=== PATIENT | male | born 1965 | race Caucasian/White ===

== ENCOUNTER 2021-05-20 10:38 | Emergency (ER) | payer BC ==
[~2021-05-20] VITALS: Ht 165.1 cm; Wt 72.6 kg
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
[2021-05-20] MEDS ORDERED: METFORMIN HCL500 M2 PO (10:46)
[2021-05-20] MEDS ORDERED: CARAFATE1 GM/10 ML PO ×2 (12:26→12:27)
[2021-05-20] MEDS ORDERED: ZOFRAN ODT4 MG PO ×2 (12:26→12:27)
[2021-05-20 12:41] VITALS: BP 134/73
--- NOTE | 2021-05-20 13:16 | EKG ---
[place] [address] ELECTROCARDIOGRAM REPORT Name: KORIN MCQUEEN Room: [facility]#: [id number] Admission: 05/20/21 Attend Phys: Discharge: 05/20/21 Date of : 67 Date of Service: 05/20/21 1144 Report #: [id number] THIS REPORT FOR: //name// [facility] ED Test Date: 2021-05-20 Test Time: 11:44:57 Pat Name: KORIN MCQUEEN Department: Room: Gender: Manager Store: : 1965 Requested By: Yenifer Koenig Order Number: [id number] MD: Giovanni Huerta Measurements Intervals [place] Rate: 102 P: 40 [place]: 140 QRS: 11 QRSD: 80 T: 43 QT: 345 QTc: 450 Interpretive Statements Sinus tachycardia Probable left atrial enlargement Borderline ST elevation, anterior leads No previous ECG available for comparison Electronically Signed On 05-20-2021 13:16:29 CDT by Giovanni Huerta [email or web address] <ELECTRONICALLY SIGNED> By: Giovanni Huerta MD, [facility] 05/20/21 1316 1144 1144 Giovanni Huerta MD, [facility] /EPI
== END 2021-05-20 12:42 | disposition home or self-care (01) ==
LOC: M.ERS 10:38
DX: S27.818A Other injury of esophagus (thoracic part), initial encounter (principal); R11.2 Nausea with vomiting, unspecified; E11.9 Type 2 diabetes mellitus without complications; E78.5 Hyperlipidemia, unspecified; R20.2 Paresthesia of skin; Z79.899 Other long term (current) drug therapy; X58.XXXA Exposure to other specified factors, initial encounter; Y93.89 Activity, other specified; Y92.89 Other specified places as the place of occurrence of the external cause; Y99.8 Other external cause status